=== PATIENT | female | born 1975 | race Caucasian/White ===

== ENCOUNTER 2021-01-13 11:24 | Emergency (ER) | payer OTHER ==
[~2021-01-13] VITALS: Ht 157.5 cm; Wt 83.9 kg
--- NOTE | 2021-01-13 11:38 | NUR ---
Patient ambulated to bed 11. RN evaluating the patient at bedside.
[2021-01-13 11:39] VITALS: BP 125/94
--- NOTE | 2021-01-13 11:57 | NUR ---
Dr. Aranda is evaluating the patient at bedside.
--- NOTE | 2021-01-13 12:00 | NUR ---
45 YEAR OLD FEMALE COMPLAINS OF HEADACHE, LIGHTHEADEDNESS, AND LEFT ARE NUMBNESS X 1 WEEK. PT STATES SHE HAS NOT BEEN COMPLIANT WITH BLOOD PRESSURE MEDICATION. PT STATES SOME SOB, BUT DENIES CP. LUNGS CLEAR BL. PT STATES SOME NAUSEA BUT NO VOMITTING OR DIARRHEA. PT AOX4, BREATHING EVEN AND UNLABORED, SKIN WARM AND DRY. BED IN LOWEST POSITION, LOCKED, BED RAIL UPX1. PMH - HTN ALLERGIES - NKA
[2021-01-13] MEDS ORDERED: METOCLOPRAMIDE 10 MG/2 ML INJ VIAL IVP ONE (12:05)
[2021-01-13] MEDS ORDERED: DEXAMETHASONE 10 MG/ML VIAL IVP ONE (12:05)
[2021-01-13] MEDS ORDERED: diphenhydrAMINE 50 MG/ML VIAL IVP ONE (12:05)
[2021-01-13 12:21] LABS: BASOPHILS % (AUTO) 0.6 % (0.0-2.0); EOSINOPHILS # (AUTO) 0.2 K/uL (0-0.4); EOSINOPHILS % (AUTO) 2.1 % (0.0-4.0); HEMATOCRIT 39.3 % (36-48); HEMOGLOBIN 13.1 g/dL (12.0-16.0); LYMPHOCYTES # (AUTO) 1.5 K/uL (2.5-16.5); LYMPHOCYTES % (AUTO) 19.9 % (20.5-51.1); MEAN CORPUSCULAR HEMOGLOBIN 31 pg (27-31); MEAN CORPUSCULAR HGB CONC 33 g/dL (33-37); MEAN CORPUSCULAR VOLUME 94.1 fL (80-94); MONOCYTES # (AUTO) 0.7 K/uL (0.8-1.0); NEUTROPHILS % (AUTO) 68.4 % (42.2-75.2); PLATELET COUNT (AUTO) 347 K/uL (140-450); RED BLOOD CELL COUNT(AUTO) 4.18 MIL/uL (4.20-5.40); RED CELL DISTRIBUTION WIDTH 13.9 % (11.6-13.7); WHITE BLOOD COUNT (AUTO) 7.4 K/uL (4.8-10.8)
--- NOTE | 2021-01-13 12:28 | NUR ---
X-Ray at bedside.
[2021-01-13 12:30] LABS: ANION GAP 8.7 (8-16); CARBON DIOXIDE 28.2 mmol/L (21-32); CREATININE 0.8 mg/dL (0.6-1.3); POTASSIUM 3.9 mmol/L (3.5-5.1)
--- NOTE | 2021-01-13 13:19 | NUR ---
Dr. Aranda is reevaluating the patient at bedside.
[2021-01-13 13:35] VITALS: BP 125/94
--- NOTE | 2021-01-13 13:36 | NUR ---
Patient discharged with v/s stable. Written and verbal after care instructions about migraine headaches given and explained. Patient verbalized understanding. Ambulatory with steady gait. All questions addressed prior to discharge. Advised to follow up with PMD.
== END 2021-01-13 13:36 | disposition home or self-care (01) ==
LOC: MED 11:24
DX: G43.909 Migraine, unspecified, not intractable, without status migrainosus (principal); R53.1 Weakness; I10 Essential (primary) hypertension
CPT/HCPCS: 36415; 71045; 80048; 84484; 84702; 85025; 93005; 96374; 96375; 99285; J1100; J1200; J2765